=== PATIENT | female | born 1965 | race Caucasian/White ===

== ENCOUNTER 2017-07-24 15:40 | Emergency (ER) | payer OTHER ==
[2017-07-24 16:11] VITALS: BP 143/80; PULSE 63; RESP 19; TEMP 98.1; O2SAT 99
[2017-07-24 16:12] VITALS: BMI 25.4
--- NOTE | 2017-07-24 17:06 | ED PDOC ---
Arrival/HPI - General Chief Complaint: Lower Extremity Problem/Injury Time Seen by Provider: 07/24/17 16:21 Historian: Patient - History of Present Illness Narrative History of Present Illness (Text): 07/24/17 17:05 51yr old female presents today with right knee pain s/p injury at work. 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 pt c/o pain and bruising to right knee. denies numbness weakness or tingling in the extremity. no medications taken for pain. c/o achy pain over anterior aspect of knee. Time/Duration: Prior to Arrival Symptom Onset: Sudden Symptom Course: Resolved Past Medical History - Provider Review Nursing Documentation Reviewed: Yes - Travel History Have you recently traveled outside [place] w/in the past 3 mons?: No - Infectious Disease Hx of Infectious Diseases: None - Reproductive Menopause: Yes - Cardiac Hx Cardiac Disorders: No - Psychiatric Hx Substance Use: No Family/Social History Family/Social History: Unknown Family HX Smoking Status: Never Smoked Hx Alcohol Use: No Hx Substance Use: No Allergies/Home Meds Allergies/Adverse Reactions: Allergies No Known Allergies Allergy (Verified 07/24/17 16:21) Review of Systems - Review of Systems Constitutional: absent: Fatigue, Fevers Respiratory: absent: SOB, Cough Cardiovascular: absent: Chest Pain Gastrointestinal: absent: Abdominal Pain Musculoskeletal: Arthralgias (right knee pain). absent: Back Pain, Neck Pain Skin: absent: Rash, Pruritis Neurological: absent: Headache, Dizziness Psychiatric: absent: Anxiety, Depression Physical Exam Vital Signs Reviewed: Yes Vital Signs Temp Pulse Resp BP Pulse Ox 07/24/17 16:07 98.1 F 63 19 143/80 99 Temperature: Afebrile Blood Pressure: Normal Pulse: Regular Respiratory Rate: Normal Appearance: Positive for: Well-Appearing, Non-Toxic, Comfortable Pain Distress: None Mental Status: Positive for: Alert and Oriented X 3 - Systems Exam Head: Present: Atraumatic Neck: Present: Normal Range of Motion Respiratory/Chest: Present: Clear to Auscultation, Good Air Exchange. No: Respiratory Distress, Accessory Muscle Use Cardiovascular: Present: Regular Rate and Rhythm, Normal S1, S2. No: Murmurs Lower Extremity: Present: Normal ROM, Tenderness (right knee; + ttp over patella ; small ecchymosis noted to anterior knee; full rom of knee; ambulates with steady gait; no calf tenderness), Neurovascularly Intact. No: CALF TENDERNESS, Swelling, Erythema, Deformity Neurological: Present: GCS=15 Psychiatric: Present: Alert, Oriented x 3 Medical Decision Making ED Course and Treatment: Patient nontoxic well-appearing in no distress with stable vital signs X-rays of the right knee; no fracture pt refused medications for pain I discussed all results with patient advised to followup with employee health tomorrow. Return if symptoms worsen persist or new symptoms develop Patient verbalizes understanding of discharge instructions and need for immediate followup. Impression: knee pain Motrin every 6 hours as needed for pain Rest, ice, compression, elevation Follow-up with employee health tomorrow. Return if symptoms worsen persist or if new symptoms develop - RAD Interpretation Radiology Orders: 07/24/17 16:21 KNEE W PATELLA RIGHT 3 VIEW [RAD] Stat Disposition/Present on Arrival - Present on Arrival Any Indicators Present on Arrival: No History of DVT/PE: No History of Uncontrolled Diabetes: No Urinary Catheter: No History of Decub. Ulcer: No History Surgical Site Infection Following: None - Disposition Have Diagnosis and Disposition been Completed?: Yes Diagnosis: Knee contusion Disposition: HOME/ ROUTINE Disposition Time: 17:03 Patient Plan: Discharge Condition: GOOD Discharge Instructions (ExitCare): Knee Pain (ED) Additional Instructions: [employer] Employee Regarding your Work Related Injury, you are instructed to do all of the following by next day: 1. Notify [employer] [facility] [employer] Employee Health Department of the sustained injury and arrange for any follow-up appointments if needed during the next business day. If the office is closed or no answer is received, please leave a detailed voice message. Message should include your full name, department and manager mobility, date of injury, date of ED visit if applicable. Employee Health can be reached at [phone]. 2. If there is time lost, notify [employer] Human Resources Department of the work related injury the next business day at [phone]. Motrin every 6 hours as needed for pain Rest, ice, compression, elevation Followup with employee health tomorrow. Return if symptoms worsen persist or if new symptoms develop Prescriptions: Ibuprofen [Motrin] 600 mg PO Q6H PRN #20 tab PRN Reason: pain/fever reduction Forms: [facility] (German), WORK NOTE
--- NOTE | 2017-07-25 13:20 | RAD ---
PROCEDURE: Right Knee Radiographs. HISTORY: knee pain COMPARISON: None. FINDINGS: BONES: Normal. No fracture. JOINTS: Joint spaces preserved. No significant osteoarthritis. JOINT EFFUSION: None. OTHER FINDINGS: None. IMPRESSION: No evidence of acute displaced fracture nor dislocation. No significant osteoarthritis.
== END 2017-07-24 17:10 | disposition home or self-care (01) ==
LOC: ED 15:40
DX: S80.01XA Contusion of right knee, initial encounter (principal); W18.30XA Fall on same level, unspecified, initial encounter; Y99.0 Civilian activity done for income or pay